=== PATIENT | male | born 1955 | race Caucasian/White ===

== ENCOUNTER 2022-09-26 23:46 | Emergency (ER) | payer MEDICARE, BC ==
--- NOTE | 2022-09-27 | NUR ---
ER saturated. no beds available at the moment. Patient is in the waiting room, NAD noted.
--- NOTE | 2022-09-27 00:30 | NUR ---
Attempt to triage patient. Patient left without being seen
== END 2022-09-27 00:59 | disposition left against medical advice (07) ==
LOC: ER 23:56
DX: Z53.21 Procedure and treatment not carried out due to patient leaving prior to being seen by health care provider (principal)